=== PATIENT | male | born 1980 | race Caucasian/White ===

== ENCOUNTER → 2016-12-29 10:18 | Outpatient (CLI) | payer OTHER ==
[2016-10-23 09:18] VITALS: BMI 29.9
[~2016-12-29 10:18] MED LIST: ANTIBIOTIC PO; ATIVAN1 MG PO; ENULOSE10 G/15 ML PO; FUROSEMIDE20 MG PO; FUROSEMIDE40 MG PO; K-DUR20 MEQ PO; LANOXIN125 MCG PO; MAG-OX 400 MG400 MG PO; MS CONTIN15 MG PO; ZOFRAN ODT4 MG/UDTAB PO
[2016-12-29 11:18] LABS: INR 0.99 (0.85-1.17); PROTIME 12.9 SECONDS (11.6-15.0)
[2016-12-29 11:30] LABS: ALBUMIN 4.3 g/dL (3.4-5.0); BILIRUBIN - DIRECT 0.17 mg/dL (0.00-0.30); BILIRUBIN - INDIRECT 0.34 mg/dL (0.00-1.00); BILIRUBIN - TOTAL 0.51 mg/dL (0.2-1.3); PROTEIN - SERUM 8.3 g/dL (6.4-8.2)
== END | disposition home or self-care (01) ==
LOC: D.RAD 12-27 10:00 → D.LAB 12-27 10:30 → D.RAD 10:00
PROVIDERS: Pediatrics
DX: Z02.71 Encounter for disability determination (principal)

== ENCOUNTER 2017-06-20 08:50 | Observation (INO) | payer MEDICAID ==
[~2017-06-20] VITALS: Ht 182.9 cm; Wt 98.9 kg
--- NOTE | ~2017-06-20 | HEMODYNAMI ---
PATIENT:ARTURO REEVES MEDICAL RECORD: [id number] : 84 [address] [id number] ADMISSION DATE: 06/20/17 Generatedon:06/21/201711:11 Patient name: ARTURO REEVES Patient #: [id number] SSN: : 1980 Date of study: 06/21/2017 Page: Of Hemodynamic Procedure Report Patient Data Patient Demographics Procedure consent was obtained First Name: ARTURO Gender: Male Last Name: LALA : 1980 [facility] Initial: ROSEY Age: 37 year(s) Patient #: [id number] Race: Unknown Additional ID: [id number] Contact details [address]: [address] [place] [address] rd State: [place] City: [facility] Zip code: [address] Past Medical History Allergies Allergen Reaction Date Comments Reported Other allergy 06/21/2017 azithromycin Admission Admission Data Admission Date: 06/20/2017 Admission Time: 12:45 Room #: 2118 Lab Results Lab Result Date: 06/21/2017 Lab Result Time: 0:00 Biochemistry Name Units Result Min Max Creatinine mg/dl 1.3 --(---*)-- 0.6 1.3 CBC Name Units Result Min Max Hemoglobin g/dl 13.8 --(*---)-- 13.5 17.5 Procedure Procedure Types Cath Procedure Diagnostic Procedure [facility] w/Coronaries Miscellaneous Procedures Moderate Sedation up to 15 minutes Procedure Description Procedure Date Procedure Date: 06/21/2017 Procedure Start Time: 10:57 Procedure End Time: 11:10 Procedure Staff Name Function Antolin Nguyen MD Performing Physician Pritesh Zapata RT Scrub French Rich RN Nurse Lewis Lin RN Nurse Janice Irizarry RT Monitor Procedure Data Cath Procedure Fluoroscopy Diagnostic fluoroscopy Total fluoroscopy Time: 1.3 time: 1.3 min min Diagnostic fluoroscopy Total fluoroscopy dose: 293 dose: 293 mGy mGy Contrast Material Contrast Material Type Amount (ml) Isovue 300 45 Entry Location Entry Primary Successful Side Size Upsize Upsize Entry Closure Succes sful Closure Location (Fr) 1 (Fr) 2 (Fr) Remarks Device Remarks Femoral Right 5 Fr Exoseal artery Estimated blood loss: 5 ml Diagnostic catheters Device Type Used For End Catheter Placement Cordis 5Fr Pigtail LV Angiography Catheter (MP) Cordis 5Fr JL 4.0 Left Coronary Catheter (MP) Angiography Cordis 5Fr 3DRC Catheter Right Coronary (MP) Angiography Procedure Complications No complications Procedure Medications Medication Administration Route Dosage Oxygen NC 2 l/min 0.9% NaCl I.V. 100 ml/hr Lidocaine 2% added to field 20 Heparin Flush Bag added to field 2 bags (1000units/500ml NS) Versed I.V. 1 mg Fentanyl I.V. 50 mcg Fentanyl I.V. 50 mcg Versed I.V. 1 mg Hemodynamics Rest HGB: 13.8 (g/dl) Heart Rate: 104 (bpm) Snapshots Pre Cath Intra NCS Post Cath Vital Signs Time Heart Resp SPO2 etCO2 AA0ngbi NIBP (mmHg) Rhythm Pain Sedation Rate (ipm) (%) (mmHg) (mmHg) Status Level (bpm) 10:37:08 105 17 100 0 0 117/84(104) ST 0 (11) 10(A) , No pain 10:41:12 103 21 100 0 0 122/82(110) ST 0 (11) 10(A) , No pain 10:45:50 104 17 100 0 0 118/86(107) ST 0 (11) 10(A) , No pain 10:50:29 104 20 96 0 0 112/82(99) ST 0 (11) 10(A) , No pain 10:55:08 98 17 97 0 0 110/83(95) ST 0 (11) 10(A) , No pain 11:00:25 69 16 97 0 0 107/72(90) ST 0 (11) 10(A) , No pain 11:05:18 102 17 97 0 0 118/82(101) ST 0 (11) 10(A) , No pain Medications Time Medication Route Dose Verified Delivered Reason Notes Effe ctiveness by by 10:37:09 Oxygen NC 2 Lewis Lewis Per l/min Riley Lin physician RN RN 10:37:49 0.9% NaCl I.V. 100 Lewis Lewis Per ml/hr Riley Lin physician RN RN 10:47:42 Lidocaine 2% added 20ml Lewis Antolin for local to vial Riley Nguyen MD anesthetic field RN 10:47:49 Heparin Flush added 2 Lewis Antolin used for Bag to bags Riley Nguyen MD procedure (1000units/500ml field RN NS) 10:53:12 Versed I.V. 1 mg Lewis Lewis for Lorigan Lorigan sedation RN RN 10:53:30 Fentanyl I.V. 50 Lewis Lewis for mcg Lorigan Lorigan sedation RN RN 10:59:32 Fentanyl I.V. 50 Lewis Lewis for mcg Lorigan Lorigan sedation RN RN 10:59:57 Versed I.V. 1 mg Lewis Lewis for Lorigan Lorigan sedation RN courtesy van driver Log Time Note 10:22:09 Pritesh Zapata RT(R) sent for patient. Start room use. 10:22:10 Time tracking: Regular hours 10:22:13 Plan of Care:Hemodynamics will remain stable., Cardiac rhythm will remain stable., Comfort level will be maintained., Respiratory function will remain adequate., Patient/ family verbilizes understanding of procedure., Procedure tolerated without complication., Recovers from procedure without complications.. 10:31:12 Patient received from PCU to CCL 1 Alert and oriented. Tansferred to table in Supine position. 10:31:13 Warm blankets applied, and paril hugger turned on for patient comfort. 10:31:14 Correct patient and procedure confirmed by team. 10:31:15 Signed procedure consent form obtained from patient. 10:31:16 ECG and BP/O2 sat monitors applied to patient. 10:31:17 Full Disclosure recording started 10:36:11 Vital chart was started 10:36:17 Rhythm: sinus tachycardia 10:36:34 H&P Date Dictated: 06/20/2017 Within 30 days and on chart., H&P Addendum completed by physician on day of procedure. (MUST COMPLETE FOR ALL OUTPATIENTS). 10:36:36 Pre-procedure instructions explained to patient. 10:36:36 Pre-op teaching completed and patient verbalized understanding. 10:36:37 Family in waiting room. 10:37:09 Oxygen 2 l/min NC was administered by Lewis Lin RN; Per physician; 10:37:49 0.9% NaCl 100 ml/hr I.V. was administered by Lewis Lin RN; Per physician; 10:38:11 Use device set Femoral Dx 10:38:12 Acist Syringe opened to sterile field. 10:38:13 Bag Decanter opened to sterile field. 10:38:13 Medline Cath Pack opened to sterile field. 10:38:13 Terumo 5Fr Crucible Sheath opened to sterile field. 10:38:13 St Demar 260cm J .035 wire opened to sterile field. 10:38:17 Acist Hand Control opened to sterile field. 10:38:17 Diagnostic Infinity 5Fr Multipack catheter opened to sterile field. 10:38:18 Acist Manifold opened to sterile field. 10:38:19 Tegaderm 4 x 4 opened to sterile field. 10:40:41 Baseline sample Acquired. 10:42:03 Patient NPO since Midnight. 10:42:23 Patient allergic to Other allergyazithromycin 10:42:25 Is the patient allergic to Iodine/contrast media? No. 10:42:27 Is patient on blood thinner?Yes 10:42:30 ACC The patient was administered the following blood thiners within the last 24 hours: ACCAspirin, ACCPlavix 10:42:32 Patient diabetic? No. 10:42:36 Previous problem with sedation/anesthesia? No ? 10:42:38 Snore? Yes 10:42:39 Sleep apnea? No 10:42:40 Deviated septum? No 10:42:41 Opens mouth fully? Yes 10:42:42 Sticks out tongue? Yes 10:42:44 Airway obstruction? No ? 10:42:46 Dentures? No ? 10:42:49 Pre procedure: right dorsailis pedis pulse 2+ Normal; easily identifiable; not easily obliterated 10:42:51 Patient pain scale 0/10 ?. 10:42:58 IV patent on arrival in right wrist with 0.9% NaCl at [facility]. 10:43:25 Lab Result : Creatinine 1.3 mg/dl 10:43:25 Lab Result : Hemoglobin 13.8 g/dl 10:43:29 Lab results completed and on chart. 10:43:31 Right groin area was prepped with chlora-prep and draped in sterile fashion 10:43:32 Alarms reviewed by R. N. 10:43:33 Sharps counted by scrub and verified by R.N. 10:44:10 Physician paged 10:44:27 Zero performed for pressure channel P1 10:44:33 Zero performed for pressure channel P1 10:44:37 Zero performed for pressure channel P1 10:47:42 Lidocaine 2% 20ml vial added to field was administered by Antolin Nguyen MD; for local anesthetic; 10:47:49 Heparin Flush Bag (1000units/500ml NS) 2 bags added to field was administered by Antolin Nguyen MD; used for procedure; 10:51:10 Final Timeout: patient, procedure, and site verified with staff and physician. All members of the team are in agreement. 10:51:12 Right groin site verified by team. 10:51:15 Physical assessment completed. ASA score P 2 - A patient with mild systemic disease as per Antolin Nguyen MD. 10:51:18 Sedation plan: IV Moderate Sedation Versed, Fentanyl 10:53:12 Versed 1 mg I.V. was administered by Lewis Lin RN; for sedation; 10:53:30 Fentanyl 50 mcg I.V. was administered by Lewis Lin RN; for sedation; 10:55:55 Procedure started. 10:57:11 Local anesthetic to right femoral artery with Lidocaine 2% by Antolin Nguyen MD.INITIAL ACCESS ONLY 10:57:27 A 5 Fr sheath was inserted into the Right Femoral artery 10:58:28 A Cordis 5Fr Pigtail Catheter (MP) was advanced over the wire and used for LV Angiography. 10:59:22 LV gram done using LEONARD 10:59:25 Injector settings: Ml/sec: 10, Volume: 20, 10:59:32 Fentanyl 50 mcg I.V. was administered by Lewis Lin RN; for sedation; 10:59:33 EF : 10 % 10:59:37 Catheter removed. 10:59:48 A Cordis 5Fr JL 4.0 Catheter (MP) was advanced over the wire and used for Left Coronary Angiography. 10:59:57 Versed 1 mg I.V. was administered by Lewis Lin RN; for sedation; 11:00:15 pt had small amt of liquid emesis, stated vomited yesterday as well, denied pain. 11:01:32 Catheter removed. 11:01:56 A Cordis 5Fr 3DRC Catheter (MP) was advanced over the wire and used for Right Coronary Angiography. 11:02:39 Catheter removed. 11:02:55 Sheath removed intact; hemostasis achieved with Exoseal to the Right Femoral artery. 11:03:03 Procedure ended.(Physican Out) 11:03:15 Fluoroscopy time 01.30 minutes. 11:03:22 Flurop Dose total: 293 11:03:22 Fluoroscopy dose: 293 mGy 11:04:50 Contrast amount:Isovue 300 45ml. 11:04:51 Sharps counted by scrub and verified by R.N. 11:04:53 Insertion/operative site no bleeding no hematoma. 11:04:55 Post-op/insertion site Right Femoral artery dressed using a 4 x 4 and Tegaderm. 11:04:59 Post right femoral artery:stable, clean and dry 11:05:00 Post Procedure Pulses reassessed and unchanged 11:05:03 Post-procedure physical assessment completed. ASA score P 2 - A patient with mild systemic disease as per Antolin Nguyen MD. 11:05:05 Post procedure rhythm: unchanged. 11:05:07 Estimated blood loss: 5 ml 11:05:09 Post procedure instruction explained to patient.Patient verbalizes understanding. 11:05:09 Patient needs reinforcement of post procedure teaching. 11:05:15 Procedure Complication : No complications 11:05:16 See physician's report for complete and final results. 11:05:55 Procedure type changed to Cath procedure, Diagnostic procedure, LHC, LHC w/Coronaries, Miscellaneous Procedures, Moderate Sedation up to 15 minutes 11:06:02 Cordis 5Fr Exoseal opened to sterile field. 11:06:24 Procedure and supply charges have been captured, reviewed, submitted and are correct. 11:09:47 Vital chart was stopped 11:09:49 Report given to PCU. 11:09:58 Patient transfered to PCU with Bed. 11:09:59 Procedure ended. 11:09:59 Full Disclosure recording stopped 11:10:02 End room use (Document Last) Device Usage Item Name Manufacture Quantity Catalog Hospital Part Current Minimal Lo t# / Number Charge Number Stock Stock Serial# Code Acist Acist 1 [id number] 197577 [id number] [id number] 20 [employer] Bag Microtek 1 2001 081584 82146 270954 5 [employer] Medline Cardinal 1 [id number] 920775 53141 074805 5 Cath Pack Health Terumo 5Fr Terumo 1 [id number] 032164 628954 050604 [address] Demar St Demar 1 970635 512647 976947 862557 30 260cm J .035 wire Acist Hand Acist 1 64948 284602 341263 571156 5 [employer] Inc Diagnostic Cardinal 1 [id number] 553767 39202 916911 30 Infinity Health 5Fr Multipack catheter Acist Acist 1 11027 307220 656941 653183 5 [employer] Inc Tegaderm 4 3M 1 1626W 209499 483580 672985 5 x 4 Cordis 5Fr Cardinal 1 457989 5 Pigtail Health Catheter (MP) Cordis 5Fr Cardinal 1 279799 5 JL 4.0 Health Catheter (MP) Cordis 5Fr Cardinal 1 488288 5 3DRC Health Catheter (MP) Cordis 5Fr Cardinal 1 EX500 624600 431163 532021 10 [employer] [employer] Signature Audit Gilman Stage Time Signature Unsigned Intra-Procedure 06/21/2017 Janice 11:11:03 AM Counts RT(R) Signatures Monitor : Janice Signature : Counts RT Date : Time : [id number] [place] [address]
[~2017-06-20 08:50] MED LIST changes: -FUROSEMIDE40 MG PO; +LASIX80 MG PO
[2017-06-20 09:45] LABS: BASOPHILS 0.2 % (0-2); EOSINOPHILS 1.6 % (0-7); HEMATOCRIT 44.1 % (42.0-54.0); HEMOGLOBIN 13.8 g/dL (13.5-17.5); IMMATURE GRANULOCYTES 0.3 % (0-5); LYMPHOCYTES 14.1 % (15-50); MCH 26.6 pg (26.0-34.0); MCHC 31.3 g/dL (31.0-37.0); MEAN PLATELET VOLUME 10.1 fL (7.4-10.4); MONOCYTES 6.1 % (2-11); NEUTROPHILS 77.7 % (40-80); PLATELET COUNT 247 10x3/uL (130-400); RBC 5.19 10x6/uL (4.20-6.10); RDW 15.1 % (11.5-14.5); WBC 9.3 10x3/uL (4.8-10.8)
[2017-06-20 10:06] LABS: ALBUMIN 3.5 g/dL (3.4-5.0); ALKALINE PHOSPHATASE 109 U/L (46-116); ALT (SGPT) 48 U/L (10-68); BILIRUBIN - TOTAL 0.39 mg/dL (0.2-1.3); CALC OSMOLALITY 278 mosm/kg (275-300); CALCIUM 8.8 mg/dL (8.5-10.1); CARBON DIOXIDE 29.5 mmol/L (21.0-32.0); CHLORIDE - SERUM 102 mmol/L (98-107); CREATININE - SERUM 1.3 mg/dL (0.6-1.3); GLUCOSE 132 mg/dL (74-106); POTASSIUM - SERUM 4.3 mmol/L (3.5-5.1); PROTEIN - SERUM 7.3 g/dL (6.4-8.2); SODIUM 136 mmol/L (136-145); UREA NITROGEN 27 mg/dL (7-18); eGFR NON AFRICAN AMERICAN 67 mL/min (90-120)
[2017-06-20 10:17] LABS: CKMB 2.2 U/L (0.0-3.6); CREATINE KINASE 60 UL (21-232); TROPONIN-I 0.045 ng/mL (0.000-0.060)
--- NOTE | 2017-06-20 14:38 | NUR ---
TRANSFER FROM ER BY W/C. KIMBERLYINTED TO ROOM. CALL LIGHT IN REACH. WILL CONT. PLAN OF CARE.
[2017-06-20] MEDS ORDERED: COREG 3.1253.125 MG PO (14:52)
[2017-06-20 14:55] VITALS: BP 103/70; BMI 29.2
[2017-06-20 15:23] VITALS: BP 103/70
--- NOTE | 2017-06-20 15:47 | NUR ---
CONSENTS SIGNED FOR [facility].
--- NOTE | 2017-06-20 19:57 | NUR ---
RESUMED CARE OF PT, LYING IN BED RESPIRATIONS EVEN AND UNLABORED ON 2LPM VIA NC. PLAN OF CARE DISCUSSED. CALL LIGHT IN REACH. WILL CONTINUE TO MONITOR. SEE NURSE ASSESSMENT.
[2017-06-20 20:02] VITALS: BP 162/75
[2017-06-21 00:35] VITALS: BP 117/63
[2017-06-21 05:38] VITALS: BP 122/84
--- NOTE | 2017-06-21 07:30 | NUR ---
RECEIVED PT IN BED AAOX4 RESP UNLABORED NAD NOTED PT NPO FOR HEART CATH
[2017-06-21 08:23] VITALS: BP 107/76
[2017-06-21 13:01] VITALS: Ht 182.9 cm; Wt 98.9 kg
--- NOTE | 2017-06-21 14:40 | NUR ---
REVIEWED DISCHARGE INSTRUCTIONS WITH PT STATES UNDERSTANDING COPY GIVEN DCD SALINE LOCK TO RFA WITH 18 GA IV CATHETER INTACT SITE FREE OF REDNESS OR EDEMA DISCHARGED PT HOME IN STABLE CONDITION LFET UNIT VIA W/C WITH ALL PERSONAL BELONGINGS
--- NOTE | 2017-06-22 09:41 | DS ---
PATIENT:ARTURO REEVES :84 MEDICAL RECORD: [id number] DISCHARGE SUMMARY ADMISSION DATE: 06/20/17 DISCHARGE DATE: 06/21/17 DATE OF DISCHARGE: 06/21/2017 DISCHARGE DIAGNOSES: 1. Nonischemic cardiomyopathy. 2. Congestive heart failure, chronic systolic dysfunction. HOSPITAL COURSE: This is a gentleman who presents with heart failure symptomatology, received IV diuresis, his heart failure symptomatology cleared. He underwent cardiac catheterization revealing no significant coronary artery disease, but ejection fraction less than 20%. He was placed on carvedilol. He had significant nausea, vomiting. His digoxin was stopped. He also had discontinuation of his Crestor. Continue his Lasix and potassium and will follow up with Medicaid clinic here in [place]. TRANSINT:[id number] Voice Confirmation ID: [id number] DOCUMENT ID: [id number] JENY JORDAN MD at 0941 CC: [id number] DICTATION DATE: 06/21/17 1109 CEMENT PRODUCTION PLANT OPERATOR: 06/21/17 2324 DIS IN 06/21/17 [facility] [address] [place] [address]
--- NOTE | 2017-06-22 09:41 | HP ---
PATIENT: ARTURO BARDALES MEDICAL RECORD: [id number] ACCOUNT: [id number] LOCATION:[facility].2118 : 84 ADMISSION DATE: 06/20/17 HISTORY AND PHYSICAL EXAMINATION DIAGNOSES: 1. Angina. 2. Congestive heart failure. 3. Shortness of breath. 4. Cardiomyopathy. 5. Abnormal ECG. 6. Hyperlipidemia. HISTORY OF PRESENT ILLNESS: Mr. Bardales presents with shortness of breath and chest pain. He has a history of a cardiomyopathy, but he has not had a full evaluation of the cardiomyopathy. He not had a cardiac catheterization in the past. His EKG suggests lateral ischemia. He has a history of smoking as well as drug abuse; however, he denies any recent drug abuse. He has a history of a cardiomyopathy. Recently, he was seen at [facility]. His Lasix was cut in half. His chest x-ray is compatible with pulmonary edema. PHYSICAL EXAMINATION: GENERAL APPEARANCE: Well-nourished, well-developed, appears stated age. Level of distress, comfortable. PSYCHIATRIC: Mental status, alert, normal affect. Orientation, oriented to time, place and person. EYES: Lids and conjunctiva, noninjected. No discharge, no pallor. ENT: Lips, teeth, gums, normal dentition. Oropharynx, no cyanosis, no pallor. NECK: Carotid arteries, bilateral normal upstroke, no bruits, no thrills. JUGULAR VEINS: No jugular venous pressure or distention. CERVICAL LYMPH NODES: Nontender, nonenlarged. THYROID: Not enlarged. Nontender. No nodules. LUNGS: Respiratory effort, unlabored. CHEST: Normal curvature. No thoracic deformity. No chest wall tenderness. Percussion, resonant. Auscultation, clear. No wheezes, no rales, no rhonchi. CARDIOVASCULAR: Precordial exam, nondisplaced. No heaves or pericardial thrills. Rate and rhythm, regular. Heart sounds, normal S1, normal S2. No S3, no gallop, no rub. Systolic murmur, not heard. Diastolic murmur, not heard. EXTREMITIES: No cyanosis, no edema. Peripheral pulses, full and equal in all extremities, except as noted. No bruits appreciated. ABDOMEN: Soft, nondistended. Normal aorta. No bruit. Nontender. No masses. Liver, nontender, no hepatomegaly. Spleen, nontender, no splenomegaly. MUSCULOSKELETAL: No joint tenderness. No joint swelling. No erythema. NEUROLOGICAL: Normal gait, normal strength, normal tone. SKIN: Warm and dry. OVERALL IMPRESSION: Congestive heart failure, chronic systolic dysfunction with pulmonary edema and exacerbation of heart failure, most likely secondary to the decreased Lasix. We will bring him and give him IV Lasix. He has not had any ischemic evaluation of the cardiomyopathy. We will perform cardiac catheterization in the a.m. TRANSINT:[id number] Voice Confirmation ID: [id number] DOCUMENT ID: [id number] HISTORY AND PHYSICAL [id number] ARTURO BARDALES, JENY QUINTANA at 0941 CC: [id number] DICTATION DATE: 06/20/17 1247 PRODUCT SAFETY TEST ENGINEER: 06/20/17 1304 DIS IN 06/21/17 [id number] [place] [address]
--- NOTE | 2017-06-22 09:41 | OP ---
PATIENT NAME: ARTURO REEVES MEDICAL RECORD: [id number] :84 LOCATION:D.M2 D.2118 ADMISSION DATE:06/20/17 SURGEON: JENY JORDAN MD DATE OF OPERATION: 06/21/2017 PROCEDURES: 1. Left heart catheterization. 2. Selective coronary angiography. 3. Left ventriculogram. INDICATION: Congestive heart failure and cardiomyopathy. PROCEDURE IN DETAIL: After informed consent was obtained and after detailed explanation of risks, benefits as well as alternative therapies, the patient elected to proceed with angiogram and heart catheterization. The right femoral area was prepped and draped in normal sterile fashion. The right femoral artery was cannulated via modified Seldinger technique with the placement of 5-Italian sheath. All catheters exchanged through this sheath. FINDINGS: The left ventriculogram was performed in standard 30-degree LEONARD view, reveals severe hypokinesis throughout all segments. Overall ejection fraction less than 20%. SELECTIVE CORONARY ANGIOGRAPHY: Left main, left anterior descending, left circumflex, and right coronary artery are all smooth-walled vessels with no angiographic evidence of coronary artery disease. OVERALL IMPRESSION: 1. No angiographic evidence of coronary artery disease. 2. Severe cardiomyopathy, nonischemic. TRANSINT:[id number] Voice Confirmation ID: [id number] DOCUMENT ID: [id number] JENY JORDAN MD at 0941 CC: [id number] DICTATION DATE: 06/21/17 1110 QUALITY SYSTEMS SPECIALIST: 06/21/17 1329 DIS IN 06/21/17 [address] [place] [address]
== END 2017-06-21 14:40 | disposition home or self-care (01) ==
LOC: D.ER 08:50 → OBSVTIME 12:45 → D.M2 12:45
PROVIDERS: Emergency Medicine; ADMIT Internal Medicine Interventional Cardiology
DX: I50.22 Chronic systolic (congestive) heart failure (principal); I42.9 Cardiomyopathy, unspecified; R94.31 Abnormal electrocardiogram [ECG] [EKG]; E78.5 Hyperlipidemia, unspecified

== ENCOUNTER 2017-06-25 14:53 | Emergency (ER) | payer MEDICAID ==
[2017-06-21 13:01] VITALS: BMI 29.5
[~2017-06-25 14:53] MED LIST changes: +COREG 3.1253.125 MG PO
[2017-06-25 16:42] LABS: BASOPHILS 0.3 % (0-2); EOSINOPHILS 1.9 % (0-7); HEMATOCRIT 39.6 % (42.0-54.0); HEMOGLOBIN 12.5 g/dL (13.5-17.5); IMMATURE GRANULOCYTES 0.2 % (0-5); LYMPHOCYTES 12.9 % (15-50); MCH 26.2 pg (26.0-34.0); MCHC 31.6 g/dL (31.0-37.0); MCV 82.8 fL (80.0-100.0); MEAN PLATELET VOLUME 9.6 fL (7.4-10.4); MONOCYTES 6.3 % (2-11); NEUTROPHILS 78.4 % (40-80); PLATELET COUNT 253 10x3/uL (130-400); RBC 4.78 10x6/uL (4.20-6.10); RDW 15.2 % (11.5-14.5); WBC 9.5 10x3/uL (4.8-10.8)
[2017-06-25 17:17] LABS: ALBUMIN 3.1 g/dL (3.4-5.0); ANION GAP 12.7 mmol/L (8-16); BILIRUBIN - TOTAL 1.04 mg/dL (0.2-1.3); CARBON DIOXIDE 28.3 mmol/L (21.0-32.0); CREATININE - SERUM 1.3 mg/dL (0.6-1.3); PROTEIN - SERUM 6.1 g/dL (6.4-8.2)
== END 2017-06-25 18:09 | disposition left against medical advice (07) ==
LOC: D.ER 14:53
PROVIDERS: Family Medicine
DX: R06.02 Shortness of breath (principal)

== ENCOUNTER → 2017-07-11 12:35 | Outpatient (CLI) | payer MEDICAID ==
[2017-06-21 13:01] VITALS: BMI 29.5
[~2017-07-11 12:35] MED LIST changes: +ALDACTONE50 MG PO
== END | disposition home or self-care (01) ==
LOC: D.CT 12:35
DX: R18.8 Other ascites (principal)

== ENCOUNTER 2017-07-13 06:45 | Outpatient (CLI) | payer MEDICAID ==
[~2017-07-13] VITALS: Ht 182.9 cm; Wt 113.6 kg
[~2017-07-13 06:45] MED LIST changes: -ALDACTONE50 MG PO
[2017-07-13 07:34] LABS: BASOPHILS 0.3 % (0-2); EOSINOPHILS 1.7 % (0-7); HEMATOCRIT 41.4 % (42.0-54.0); HEMOGLOBIN 12.9 g/dL (13.5-17.5); IMMATURE GRANULOCYTES 0.1 % (0-5); MCH 25.4 pg (26.0-34.0); MCHC 31.2 g/dL (31.0-37.0); MCV 81.5 fL (80.0-100.0); MONOCYTES 7.6 % (2-11); NEUTROPHILS 71.3 % (40-80); PLATELET COUNT 231 10x3/uL (130-400); RBC 5.08 10x6/uL (4.20-6.10); RDW 15.7 % (11.5-14.5)
[2017-07-13 07:43] LABS: ANION GAP 19.2 mmol/L (8-16); APTT 28.6 SECONDS (22.8-39.4); CALCIUM 8.6 mg/dL (8.5-10.1); CARBON DIOXIDE 26.3 mmol/L (21.0-32.0); CREATININE - SERUM 1.6 mg/dL (0.6-1.3); INR 1.23 (0.85-1.17); POTASSIUM - SERUM 4.5 mmol/L (3.5-5.1); PROTIME 15.4 SECONDS (11.6-15.0)
[2017-07-13] MEDS ORDERED: ALDACTONE50 MG PO (08:19)
[2017-07-13 08:30] VITALS: BP 104/74; Ht 182.9 cm; Wt 113.6 kg
[2017-07-13 14:44] LABS: LYMPH - BF 55 %; MACROPHAGES BF 2 %; NEUT - BF 43 %
--- NOTE | 2017-07-13 16:10 | NUR ---
1236--IV DC'D, AND PT DRESSED. NORCO 5/325MG X1 TAB GIVEN PO FOR PAIN PER PT REQUEST. LAILA EVANGELISTA 1241--DISCHARGE INSTRUCTIONS GIVEN, PT VERBALIZES UNDERSTANDING. PT OFF UNIT VIA WC. LAILA EVANGELISTA
== END 2017-07-13 12:45 | disposition home or self-care (01) ==
LOC: D.OPS 06:45 → D.CT 09:00 → D.OPS 12:45 → D.CT 14:00
PROVIDERS: General Practice
DX: J44.9 Chronic obstructive pulmonary disease, unspecified (principal); I50.9 Heart failure, unspecified; R18.8 Other ascites; I42.9 Cardiomyopathy, unspecified